=== PATIENT | male | born 1970 | race Two or more races ===

== ENCOUNTER 2024-06-14 06:47 | Emergency (ER) | payer OTHER, SELFPAY ==
[2024-06-14 06:49] VITALS: BP 120/60
--- NOTE | 2024-06-14 07:05 | ED.GENMED ---
History of Present Illness
General
Chief Complaint: Musculo-Skeletal Complaint
Time Seen by Provider: 06/14/24 07:05
History of Present Illness
History of Present Illness:
HPI: Patient presents due to right foot pain after injury. 2 days ago, he got his right foot caught in between the slats of a pallet. He reports negative x-ray at urgent care. The swelling and bruising worsened so he came in here for
reevaluation. He denies any other injury. He declined being placed in a boot yesterday.
EXAM:
GENERAL: Well appearing in no distress
EXTREMITIES: Fairly good active range of motion at the right ankle, no disruption of the Achilles, moderate ecchymosis and edema noted to the dorsal aspect of the right foot, there is tenderness to the dorsal aspect of the foot but no significant
tenderness at the base of the fifth metatarsal
NEURO: Excellent strength all extremities, appropriate mental status, normal speech/language
TIME OF INITIAL ENCOUNTER: 7:05 AM
NUMBER AND COMPLEXITY OF PROBLEMS ADDRESSED AT THE ENCOUNTER
� Chronic conditions affecting care: High cholesterol
� Acute Exacerbation and/or Progression of Chronic Illness: This is an acute problem
� Differential Diagnosis includes: Foot sprain, foot fracture, ankle sprain, ankle fracture
AMOUNT AND/OR COMPLEXITY OF DATA TO BE REVIEWED AND ANALYZED
� I performed an independent evaluation of and my interpretation is:
EKG:
CT:
X-rays: I personally viewed x-ray raise, some soft tissue swelling noted but no clear sign of fracture
Laboratory Studies:
Other:
� Review of other/old records: I reviewed records, the patient had a screening colonoscopy in 2019
� Clinical information was obtained by an independent historian: None needed
� Prescriptions/Medications Considered but not given: Consider analgesia however the patient declines
� Further testing considered but not performed:
RISK OF COMPLICATIONS AND/OR MORBIDITY OR MORTALITY OF PATIENT MANAGEMENT
� Social determinants of health affecting care: Lives at home
� Discussion with other providers:
� Escalation of care including admission/observation vs risk of discharge considered: X-rays obtained. He declined analgesia. He is to follow-up with orthopedics. On reassessment at 8:50 AM, the patient appears comfortable. I
recommend follow-up with orthopedics.
Phy Exam
Physical Exam
Physical Exam:
See HPI
Course
Orders/Labs/Results
Orders:
Orders
06/14/24 07:10
CR Foot - Right Min 3 Views Urgent
Comment:
Reason For Exam: pain injury swelling; dorsal tender
06/14/24 08:50
boot [Ortho Boot Right- Treatment] ONCE
Short or tall?: Short
Vital Signs
Initial and Last Documented VS:
Initial Vital Signs
Temp Pulse Resp BP Pulse Ox
98.2 F 66 16 120/60 98
06/14/24 06:49 06/14/24 06:49 06/14/24 06:49 06/14/24 06:49 06/14/24 06:49
Last Documented Vital Signs
Temp Pulse Resp BP Pulse Ox
98.2 F 66 16 120/60 98
06/14/24 06:49 06/14/24 06:49 06/14/24 06:49 06/14/24 06:49 06/14/24 06:49
*Critical Care Note
Total Time (30-74mins, 75-104mins- exclusive of procedures): Not Applicable
ED Attending Note
-
Portions of this chart may have been created with voice recognition software.� Occasional wrong word or��sound alike� substitutions may have occurred due to the inherent limitations of voice recognition software.
Discharge Plan
Departure
Patient Disposition: Home (Routine Discharge)
Date of Disposition: 06/14/24
Time of Disposition: 08:51
Patient with high blood pressure during this ER visit?: No
Discharge Problem:
Foot sprain
Instructions: Walking Boot, Foot Sprain ED
Referrals:
Jackeline Echeverria PA [Family Provider] -
Radha Whitman I., DO [Active] - Follow up in 2-3 days
Activity Restrictions/Additional Instructions:
I recommend that you follow-up with orthopedics such as Dr. Whitman. I recommend 3-4 [id number] ibuprofen (Motrin) every 8 hours with food for a few days. Return here if worse.
Interventions
Interventions:
*Risk Screen - Suicide Last Done: 06/14/24 06:49
*General Assessment Last Done: 06/14/24 06:49
*Neglect/Abuse Screening Last Done: 06/14/24 06:49
ED-Musculoskeletal Assessment Last Done: 06/14/24 07:31
Discharge Date and Time
Print Language: ITALIAN
[2024-06-14 07:31] VITALS: BMI 21.3
[2024-06-14 09:49] VITALS: BP 128/68
== END 2024-06-14 10:20 | disposition home or self-care (01) ==
LOC: EMR 06:47
PROVIDERS: EMERGENCY PHYSICIAN Emergency Medicine; FAMILY PHYSICIAN Physician Assistant
DX: S93.601A Unspecified sprain of right foot, initial encounter (principal); X50.1XXA Overexertion from prolonged static or awkward postures, initial encounter
CPT/HCPCS: 99283; 73630

== ENCOUNTER 2025-03-10 05:16 | Emergency (ER) | payer OTHER, SELFPAY ==
[2025-03-10 05:21] VITALS: BP 134/80
[2025-03-10 07:33] VITALS: BMI 21.4
[2025-03-10 07:35] VITALS: BP 130/82
--- NOTE | 2025-03-10 07:45 | EDRN ---
Received patient on stretcher. Patient stated that he developed lower back pain yesterday after he was working on his car and yard work. Patient stated that he has pain with movement. Patient stated that he 'took either Tylenol or Ibuprofen. I
confuse them.' Denies any weakness,numbness/tingling or incontinence.
--- NOTE | 2025-03-10 07:50 | ED.GENMED ---
History of Present Illness
<Madelyn Good MD, Resident - Last Filed: 03/10/25 09:18>
General
Chief Complaint: Back Pain
Time Seen by Provider: 03/10/25 07:22
History of Present Illness
History of Present Illness:
This is a 54-year-old male with past medical history of hyperlipidemia who presents to the ED complaining of lower back pain ongoing for the past 2 days. Patient reports he was working under the joseph of his car 2 days ago, as well as some yard work
on the same day. He began to experience lower back pain and spasm after this event which he rates as a 2 out of 10. He describes it as a dull pain that does not radiate anywhere. Standing makes the pain worse, laying flat makes the pain better.
He has not taken any medication for the pain. He denies bowel, bladder dysfunction. He can ambulate freely, bears weight on lower extremities without pain. He denies weakness, numbness, tingling sensation. He denies fever, chills, weight loss,
night sweats. He denies IV drug use.
Past History
<Madelyn Good MD, Resident - Last Filed: 03/10/25 09:18>
Past History
ED Past Medical History: Hypercholesterolemia
ED Past Surgical History: None
Social History
Tobacco: Non-smoker
Alcohol: Occasional
Drug: None
Review of Systems
<Madelyn Good MD, Resident - Last Filed: 03/10/25 09:18>
Review of Systems
All Other Systems: ROS reviewed and negative except as documented in HPI and ROS
Phy Exam
<Madelyn Good MD, Resident - Last Filed: 03/10/25 09:18>
General Physical Exam
General Presentation: well appearing and no apparent distress
General Skin: warm and dry
General Mental: alert
Cardiovascular Exam
Cardiovascular Exam: regular rate/rhythm and no edema
Gastrointestinal Exam
Gastrointestinal Exam: normal bowel sounds, non tender, soft and non distended
Neurological Exam
Neurological Exam: alert and oriented x3
Musculoskeletal Exam
Musculoskeletal Exam: full ROM and other (5/5 muscular strength bilateral upper extremity and lower extremity. No tenderness to palpation of spine. No spinal deformities. Straight leg test negative. Pulses bilateral equally LE)
Psychiatric Exam
Psychiatric Exam: normal mood/affect
Course
<Madelyn Good MD, Resident - Last Filed: 03/10/25 09:18>
Vital Signs
Initial and Last Documented VS:
Initial Vital Signs
Temp Pulse Resp BP Pulse Ox
97.2 F 74 24 134/80 98
03/10/25 05:03/10/25 05:21 03/10/25 05:21 03/10/25 05:21 03/10/25 05:21
Last Documented Vital Signs
Temp Pulse Resp BP Pulse Ox
97.2 F 74 24 134/80 100
03/10/25 05:21 03/10/25 05:03/10/25 05:21 03/10/25 05:21 03/10/25 07:33
<Isrrael Acevedo DO - Last Filed: 03/10/25 09:13>
Vital Signs
Initial and Last Documented VS:
Initial Vital Signs
Temp Pulse Resp BP Pulse Ox
97.2 F 74 24 134/80 98
03/10/25 05:03/10/25 05:21 03/10/25 05:21 03/10/25 05:03/10/25 05:21
Last Documented Vital Signs
Temp Pulse Resp BP Pulse Ox
97.2 F 74 24 134/80 100
03/10/25 05:21 03/10/25 05:21 03/10/25 05:21 03/10/25 05:03/10/25 07:33
<Madelyn Good MD, Resident - Last Filed: 03/10/25 09:18>
MDM/Problems Addressed
MDM/Problems Addressed:
This is a 54-year-old male with past medical history of hyperlipidemia who presents with lower back pain after doing yard work and working under his car. No red flag symptoms including fever, chills, weight loss, bowel/bladder dysfunction
well-appearing in no acute distress. Spine nontender to palpation, straight leg test negative. Etiology likely musculoskeletal strain of lower back. Will start on steroids and Flexeril for muscle spasm. Follow-up with PCP outpatient
<Isrrael Acevedo DO - Last Filed: 03/10/25 09:13>
*Pulse Oximetry
Patient hypoxic: no
*Critical Care Note
Total Time (30-74mins, 75-104mins- exclusive of procedures): Not Applicable
Data Reviewed
Source: patient
Further Testing Considered But Not Given:
Considered plain films or CT but no bony injuries. No clinical concern for bony abnormality
ED Attending Note
<Madelyn Good MD, Resident - Last Filed: 03/10/25 09:18>
-
Portions of this chart may have been created with voice recognition software.� Occasional wrong word or��sound alike� substitutions may have occurred due to the inherent limitations of voice recognition software.
<Isrrael Acevedo DO - Last Filed: 03/10/25 09:13>
ED Attending Note
Patient seen and examined by attending physician: Yes
I performed a history and physical exam of patient and discussed management with resident, I reviewed resident's note and agree with documented findings and plan of care.: Yes
ED Attending Note:
54-year-old male who presents with left low back pain that started yesterday. He admits he was working under his car and was kind of using some torque. States he did not feel much pain at the time but yesterday was walking and sort of gets the
spasms pain that makes him feel like he is going to drop. Pain clearly worse with certain positions. Exam: Awake and alert, negative straight leg raise, points of pain near his left SI joint. No rash. No pain of midline percussion. No fever.
Normal distal pulses. Assessment plan: Suspect soft tissue injury/strain. Does have a history of low back problems. Doubt herniation as there is no significant radiation at all. However, may benefit from outpatient MRI. Advised PCP follow-up.
Trial steroids and muscle laxation. No signs of cauda equina syndrome. No risk factors for infectious process
Discharge Plan
Departure
Patient Disposition: Home (Routine Discharge)
Date of Disposition: 03/10/25
Time of Disposition: 08:57
Patient with high blood pressure during this ER visit?: No
Discharge Problem:
Lower back pain
Instructions: Low Back Pain (DC)
Prescriptions:
New
prednisone 10 mg Tablet
See Rx Instructions .ROUTE .COMPLEX Qty: 30 0RF
Rx Instructions:
Take By Mouth:
40 mg daily x3 days, 30 mg daily x3 days,
20 mg daily x3 days, 10 mg daily x3 days.
cyclobenzaprine 5 mg tablet
5 mg PO TID PRN (Reason: muscle spasm) Qty: 14 0RF
Referrals:
Jackeline Echeverria PA [Family Provider] - Follow up in 1 week
Activity Restrictions/Additional Instructions:
Please return for any worsening symptoms.
You may return at any time if you have further concerns.
Please follow up with your PCP as an MRI maybe warranted for further evaluation
Recommend Ice, Rest and NSAID as needed for lower back pain
Flexeril may cause drowsiness or dizziness. Do not drive, operate heavy machinery when drowsy with use
Thank you for choosing [facility].
Interventions
Interventions:
*Risk Screen - Suicide Last Done: 03/10/25 05:21
*General Assessment Last Done: 03/10/25 07:33
*Neglect/Abuse Screening Last Done: 03/10/25 05:21
*ED- Fall Risk Assessment Last Done: 03/10/25 07:33
*ED COVID-19 Vaccine History Last Done: 03/10/25 07:38
ED-Musculoskeletal Assessment Last Done: 03/10/25 07:33
Discharge Date and Time
Print Language: BULGARIAN
--- NOTE | 2025-03-10 09:20 | EDRN ---
Reviewed discharge instructions with patient. Verbalized understanding. Ambulated with steady gait to the lobby.
[2025-03-10 09:26] VITALS: BP 141/83
== END 2025-03-10 09:20 | disposition home or self-care (01) ==
LOC: EMR 05:16
PROVIDERS: EMERGENCY PHYSICIAN Emergency Medicine; FAMILY PHYSICIAN Physician Assistant
DX: M54.50 Low back pain, unspecified (principal); E78.00 Pure hypercholesterolemia, unspecified
CPT/HCPCS: 99282

== ENCOUNTER → 2025-04-02 06:43 | Outpatient (REF) | payer OTHER, SELFPAY | LOC: MRI 06:43 | PROVIDERS: ATTENDING PHYSICIAN Family Medicine | DX: M54.16 Radiculopathy, lumbar region (principal) | CPT/HCPCS: 72148 ==

== ENCOUNTER → 2025-07-25 10:58 | Outpatient (REF) | payer OTHER, SELFPAY | LOC: RAD 10:58 | PROVIDERS: ATTENDING PHYSICIAN Family Medicine; FAMILY PHYSICIAN Physician Assistant | DX: R05.3 Chronic cough (principal) | CPT/HCPCS: 71046 ==

== ENCOUNTER 2025-08-02 08:08 | Emergency (ER) | payer OTHER, SELFPAY ==
[2025-08-02] VITALS (9 sets, daily range): BP systolic 112–135; BP diastolic 57–85
[2025-08-02 08:42] LABS: Hematocrit 39.4 % (39.0-52.0); Hemoglobin 13.8 g/dL (13.0-18.0); Mean Corp Hgb Conc. 35.0 g/dL (33.0-37.0); Mean Corpuscular Volume 89.3 fL (80.0-94.0); Nucleated Red Blood Cells % 0 % (-); Platelet Count 324 10^3/uL (130-400); Red Cell Dist. Width 11.7 % (11.5-14.5)
[2025-08-02] MEDS: DUONEB 9 ML INH (09:00)
[2025-08-02] MEDS: DECADRON 10 MG IV (09:01)
[2025-08-02 09:02] LABS: Blood Urea Nitrogen 11 mg/dl (9-20); Calcium 9.3 mg/dl (8.4-10.2); Carbon Dioxide 25 mmol/L (22-30); Chloride 105 mmol/L (98-107); Glucose 99 mg/dl (70-99); Sodium 138 mmol/L (135-145); eGFR > 60.00
[2025-08-02 09:05] LABS: COVID-19 Antigen Negative (Negative)
--- NOTE | 2025-08-02 09:05 | ED.GENMED ---
History of Present Illness
General
Chief Complaint: Breathing Problem
Time Seen by Provider: 08/02/25 08:20
History of Present Illness
History of Present Illness:
55-year-old male without significant past medical history presenting to the emergency department for cough and shortness of breath. Patient reports symptoms for the past 2 weeks. He initially saw his primary care doctor, was told to take Mucinex.
Reports he had no improvement so then he was prescribed an albuterol inhaler with minimal improvement. In the past 2 days cough and breathing has worsened. Denies any fever or history of lung disease. Denies any known sick contacts. Denies any
fever. Denies any chest discomfort. Denies acute medical complaints
Past History
Past History
ED Past Medical History: Hypercholesterolemia
ED Past Surgical History: None
Social History
Tobacco: Non-smoker
Alcohol: Occasional
Drug: None
Phy Exam
Physical Exam
Physical Exam:
General: Well-appearing, no clinical signs of dehydration, nontoxic and in no acute distress
HEENT: protecting airway
Neck: appears supple
CV: Normal heart rate, regular rhythm, no evidence of cyanosis
Resp: Mild tachypnea, lungs clear to auscultation. Active dry cough
Abd: No distention
Extremities: No deformities, no swelling
Neuro: alert, no focal neurologic deficit
: deferred
Rectal: deferred
Psych: Normal affect
Skin: Intact
Scores
Heart Failure Risk
Heart Failure Risk Score: Not Applicable
Course
Orders/Labs/Results
Orders:
Orders
08/02/25 08:12
ECG [Electrocardiogram (*1)] Urgent
Reason for Study: Shortness of Breath
EKG- Treatment ONCE
08/02/25 08:26
Basic Metabolic Panel Urgent
COVID-19 Antigen Urgent
Source: Nasal Swab
Complete Blood Count/With Diff Urgent
Influenza A+B Rapid Molecular Urgent
LILIANA Source: Nasal Swab
Specimen Description:
08/02/25 08:53
Dexamethasone Sod Phosphate [Decadron] 10 mg IV NOW STA
Ipratropium/Albuterol Sulfate [Duoneb] 9 ml INH R NOW ONE
08/02/25 08:54
CR Chest - 2 Views Urgent
Comment:
Reason For Exam: cough, sob
08/02/25 11:03
CT Chest PE Study Urgent
Comment:
Reason For Exam: sob, hypoxia
Abnormal Lab Results
08/02/25
08:26
RBC 4.41 L 10^6/uL
(4.70-6.10)
MCH 31.3 H pg
(27.0-31.0)
Eosinophils % 6.6 H %
(0-6)
08/02/25 08:26
08/02/25 08:26
Vital Signs
Initial and Last Documented VS:
Initial Vital Signs
Pulse Resp BP Pulse Ox
91 26 135/85 95
08/02/25 08:10 08/02/25 08:10 08/02/25 08:10 08/02/25 08:10
Last Documented Vital Signs
Temp Pulse Resp BP Pulse Ox
99.1 F 88 16 124/78 95
08/02/25 12:34 08/02/25 14:42 08/02/25 14:42 08/02/25 14:42 08/02/25 14:42
MDM/Problems Addressed
MDM/Problems Addressed:
55-year-old male without significant past medical history presenting to the emergency department for cough and shortness of breath. Vital signs on arrival are normal.
On exam patient is in no acute respiratory distress, active dry cough. Ultimately suspect viral etiology to patient's symptoms. Patient afebrile, nontoxic with lungs clear to auscultation, no focal abnormal lung sounds. EKG obtained on arrival,
without concern for acute ischemia. Patient without present chest pain. Without concern for ACS. Patient otherwise afebrile, nontoxic. Will obtain laboratory analysis, viral swabs, chest x-ray imaging and reassess after DuoNebs and steroids for
suspected component of bronchitis
11:00 -chest x-ray without acute cardiopulmonary disease. On reassessment patient reports that he is feeling better. Mildly hypoxic when sleeping. Continue to suspect bronchitis, however in the setting of persistence of symptoms and hypoxia, will
obtain CT PE
14:10 -CT PE without acute findings. Continue to suspect bronchitis. Patient remained stable from respiratory standpoint. Will discharge on steroids and albuterol. Return precautions discussed and patient verbalized understanding
*Pulse Oximetry
SaO2: 96
Oxygen Mode of Delivery: Room air
Patient hypoxic: no
*EKG
Interpreted by ED Provider?: Yes
EKG Intrepretation Date: 08/02/25
EKG Intrepretation Time: 09:07
Interpretation: normal
Comparison EKG: no comparison EKG present
Heart Rate: 96
Rate: normal
Rhythm: sinus
[place]: normal axis
Interval: normal interval
QRS Pattern: normal QRS
Ischemia: non-specific ST changes
*Critical Care Note
Total Time (30-74mins, 75-104mins- exclusive of procedures): Not Applicable
ED Attending Note
-
Portions of this chart may have been created with voice recognition software.� Occasional wrong word or��sound alike� substitutions may have occurred due to the inherent limitations of voice recognition software.
Discharge Plan
Departure
Patient Disposition: Home (Routine Discharge)
Date of Disposition: 08/02/25
Time of Disposition: 14:12
Patient with high blood pressure during this ER visit?: No
Condition: Good
Discharge Problem:
Acute bronchitis
Instructions: Bronchitis in adults - ED (DC)
Prescriptions:
New
albuterol sulfate [Ventolin HFA] 90 mcg/actuation HFA aerosol inhaler
2 puff inhalation Q6H PRN (Reason: shortness of breath or wheezing) Qty: 8.5 0RF
prednisone 50 mg tablet
50 mg PO DAILY Qty: 5 0RF
No Action
prednisone 10 mg Tablet
See Rx Instructions .ROUTE .COMPLEX Qty: 30 0RF
Rx Instructions:
Take By Mouth:
40 mg daily x3 days, 30 mg daily x3 days,
20 mg daily x3 days, 10 mg daily x3 days.
cyclobenzaprine 5 mg tablet
5 mg PO TID PRN (Reason: muscle spasm) Qty: 14 0RF
Referrals:
Jackeline Echeverria PA [Family Provider, Family Practice]
Activity Restrictions/Additional Instructions:
You were seen in the emergency department for cough and difficulty breathing
You were found to have reassuring laboratory analysis, vital signs, CT and chest x-ray imaging of your chest. We suspect that you have a bronchitis. Please continue to take the steroids and your inhaler as directed.
Please follow-up closely with your primary care physician.
Return to the emergency department for any worsening of your symptoms, or any development of chest pain, difficulty breathing, abdominal pain with persistent vomiting and inability to tolerate food or liquid by mouth (concern for dehydration),
weakness, headache or confusion, fever greater than 100.4, or any additional symptoms that are concerning to you.
Thank you for choosing [facility].
Interventions
Interventions:
*Risk Screen - Suicide Last Done: 08/02/25 08:12
*General Assessment Last Done: 08/02/25 08:12
*Neglect/Abuse Screening Last Done: 08/02/25 08:12
*ED- Fall Risk Assessment Last Done: 08/02/25 10:35
*ED COVID-19 Vaccine History Last Done: 08/02/25 10:35
*Nursing Disposition Last Done: 08/02/25 14:52
ED- Cardiac Assessment Last Done: 08/02/25 08:45
ED- Pulmonary Assessment Last Done: 08/02/25 08:45
Discharge Date and Time
Discharge Date/Time: 08/02/25 14:52
Print Language: GUAMANIAN
== END 2025-08-02 14:52 | disposition home or self-care (01) ==
LOC: EMR 08:08
PROVIDERS: EMERGENCY PHYSICIAN Student in an Organized Health Care Education/Training Program; FAMILY PHYSICIAN Physician Assistant
DX: J20.9 Acute bronchitis, unspecified (principal); E78.00 Pure hypercholesterolemia, unspecified; Z11.52 Encounter for screening for COVID-19
CPT/HCPCS: 99285; 94640; 96374; 71046; 71275; 80048; 85025; 87502; 87811; 93005; Q9967